=== PATIENT | male | born 1975 | race Two or more races ===

== ENCOUNTER 2017-03-07 08:45 | Emergency (ER) ==
[2017-03-07 08:57] VITALS: BP 133/90; TEMP 97.6; BMI 29.0
[2017-03-07] MEDS ORDERED: FLUORETS OP STA ×2 (09:07)
[2017-03-07] MEDS ORDERED: EYE-STREAM OP STA ×2 (09:07)
[2017-03-07] MEDS ORDERED: PROPARACAINE 0.5% OP STA ×2 (09:07)
--- NOTE | 2017-03-07 09:08 | ED.PDOC ---
General ED Provider: Dr. GILDARDO BRADFORD JR Chief Complaint: Eye Problem Stated Complaint: WORKING OUTSIDE, GOT DUST IN LEFT EYE[End]97.6 74 20 96% 133/ 90 9/10 LEFT EYE PAIN[End] Time Seen by Physician: 09:07 Mode of Arrival: Walk-In Information Source: Patient, Family Exam Limitations: No limitations, Language barrier (bottom buffer here) Nursing and Triage Documentation Reviewed and Agree: No EENT Complaint Exam - Eye Complaint/Exam Onset/Duration: LAST NIGHT 03/06/17 Symptoms Are: Still present Timing: Constant Initial Severity: Moderate Current Severity: Moderate Location: Left Character: Reports: Sharp Alleviating: Reports: Eye drops Associated Signs and Symptoms: Reports: Photophobia, Clear drainage Related History: Reports: Foreign body Eye Surgical History: Reports: None 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) Lid Findings: Normal Conjunctival Findings: Red Corneal Findings: Clear (deep foreign body left medial cornea at 9 oclock position) Fluorescein Uptake: Yes (done) Slit Lamp Used: No Differential Diagnoses: Foreign Body Review of Systems - Review Of Systems Constitutional: Reports: No symptoms Eyes: Reports: Drainage, Inflammation, Pain, Other Ears, Nose, Mouth, Throat: Reports: No symptoms Respiratory: Reports: No symptoms Cardiac: Reports: No symptoms GI: Reports: No symptoms : Reports: No symptoms Musculoskeletal: Reports: No symptoms Skin: Reports: No symptoms Neurological: Reports: No symptoms Endocrine: Reports: No symptoms Hematologic/Lymphatic: Reports: No symptoms All Other Systems: Other Past Medical History - Past Medical History Previously Healthy: Yes Endocrine: Reports: None, Unknown Cardiovascular: Reports: None, Unknown Respiratory: Reports: None, Unknown Hematological: Reports: None, Unknown Gastrointestinal: Reports: None, Unknown Genitourinary: Reports: None, Unknown Neuro/Psych: Reports: None, Unknown Musculoskeletal: Reports: None, Unknown Cancer: Reports: None, Unknown - Surgical History General Surgical History: Reports: None, Unknown - Family History Family History: Reports: Unknown - Social History Smoking Status: Never smoker Hx Substance Use: No Alcohol Screening: Occasionally - Immunizations Tetanus Shot up to Date: No Physical Exam - Physical Exam Appearance: Well-appearing Pain Distress: Moderate Eyes: GOLDEN, EOMI, Conjunctiva inflammed (left), Right pupil size, Left pupil size Neck: Supple Respiratory: Airway patent Psychiatric: Affect appropriate Physician Notification - Case Discussed Physician Notified: called radha at Dr Crow- will see by 11:15 Time of Notification: 09:19 Critical Care Note - Critical Care Note Total Time (mins): 5 Course - Course Vital Signs: Temp Pulse Resp BP Pulse Ox 03/07/17 08:47 97.6 F 74 20 133/90 96 Departure - Departure Time of Disposition: 09:22 Disposition: DISCH/TSF INST NOT DEFINED Discharge Problem: Corneal FB (foreign body) Instructions: Eye Foreign Body (ED) Condition: Fair 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
== END 2017-03-07 09:35 | disposition other institution (70) ==
LOC: ED 08:45
DX: T15.02XA Foreign body in cornea, left eye, initial encounter (principal)
CPT/HCPCS: 99282